=== PATIENT | female | born 1995 | race Caucasian/White ===

== ENCOUNTER 2018-03-24 18:30 | Emergency (ER) | payer SELFPAY ==
[~2018-03-24] VITALS: Ht 172.7 cm; Wt 75.0 kg
[~2018-03-24 18:30] MED LIST: NORE1TAB57 PO
[2018-03-24 19:04] VITALS: BP 136/63; PULSE 62; RESP 18; TEMP 97.5; O2SAT 98
[2018-03-24 20:58] LABS: BILIRUBIN, URINE NEG (NEG); BLOOD, URINE NEG (NEG); GLUCOSE,URINE NEG (NEG); KETONE, URINE NEG (NEG); MUCUS URINE FEW /lpf (OCC); NITRITE,URINE NEG (NEG); PH, URINE 5.5 (5.0-8.5); SQUAMOUS EPITHELIAL CELL URINE 1 /hpf (0-5); URINE COLOR YELLOW (YELLW/STRAW); URINE LEUKOCYTE ESTERASE LARGE (NEG)
[2018-03-24] MEDS ORDERED: AZITHROMYCIN PWD FOR SUSP 1 GM PACKET PO ONE (21:45)
[2018-03-24] MEDS ORDERED: cefTRIAXone 250 MG VIAL IM ONE (21:45)
[2018-03-24] MEDS ORDERED: LIDOCAINE HCL 1% 50 ML VIAL IM ONE (21:45)
--- NOTE | 2018-03-24 21:48 | PD ---
HPI Chief Complaint: Complaint Time Seen by Provider: 21:37 Travel History International Travel<30 days: No Contact w/Intl Traveler<30days: No Traveled to known affect area: No History of Present Illness HPI 22-year-old white female presents emergency department requesting evaluation of lower pelvic discomfort and a whitish thick white vaginal discharge. Patient states that she has had intermittent lower pelvic pain 2 months. She states in the last week she has noted a vaginal discharge. She denies any fever chills. No nausea vomiting. No back pain. She states that her last mental period is over 1 month ago. She is sexually active. She reports a single partner. She does also report some increased urinary frequency and some slight dysuria. No hematuria. PFSH Past Medical History Narrative Medical Ovarian cysts, anxiety, depression, OCD Immunizations Current: Yes Tetanus Vaccination: Unknown Influenza Vaccination: No ?: Unknown Past Surgical History Surgical History: No Previous Surgery Social History Alcohol Use: No Tobacco Use: No Substance Use: No Allergies-Medications (Allergen,Severity, Reaction): Coded Allergies: No Known Allergies (Unverified Adverse Reaction, Unknown, 03/24/18) Reported Meds & Prescriptions Reported Meds & Active Scripts Active Diflucan (Fluconazole) 150 Mg Tab 150 Mg PO ONCE Loestrin 1.5/30 (Norethindrone-Ethinyl Estradiol) 1.5-30 Mg-Mcg Tab 1 Tab PO DAILY Review of Systems General / Constitutional: No: Fever Eyes: No: Visual changes HENT: No: Headaches Cardiovascular: No: Chest Pain or Discomfort Respiratory: No: Shortness of Breath Gastrointestinal: No: Nausea, Vomiting, Diarrhea, Abdominal Pain Genitourinary: Positive: Frequency (0), Dysuria, Pelvic Pain, Discharge, No: Hematuria, Dysmenorrhea, Menorrhagia, Vaginal Bleeding Musculoskeletal: No: Arthralgias, Limited ROM, Pain Skin: No Rash Neurologic: No: Weakness Psychiatric: No: Depression Endocrine: No: Polydipsia Hematologic/Lymphatic: No: Easy Bruising Physical Exam Narrative GENERAL: Well-developed, well-nourished in no acute distress. Nontoxic appearing. HEAD: Normocephalic, atraumatic. EYES: Pupils equal round and reactive. Extraocular motions intact. No scleral icterus. No injection or drainage. ENT: TMs clear without erythema. The external auditory canals clear. Nose: clear . Posterior pharynx is pink and moist. No tonsillar edema or exudate. Uvula midline. Airway patent. NECK: Trachea midline.Supple, nontender, moves head freely. No central bony tenderness or spasm. CARDIOVASCULAR: Regular rate and rhythm without murmurs, gallops, or rubs. RESPIRATORY: Clear to auscultation. Breath sounds equal bilaterally. No wheezes , rales, or rhonchi. GASTROINTESTINAL: Abdomen soft, non-tender, nondistended. No hepato-splenomegaly , or palpable masses. No guarding. EXTREMITIES: No clubbing, cyanosis, or edema. No joint tenderness, effusion, or edema noted. BACK: Nontender without deformity or crepitance. No flank tenderness. Pelvic: Ludy AMIN RN present during the exam. Patient has a moderate amount of white thick vaginal discharge. No lesions. Speculum exam performed. Cultures obtained. Cervical friability. No blood in the vault. Bimanual exam deferred. Data Data Last Documented VS Vital Signs Date Time Temp Pulse Resp B/P (MAP) Pulse Ox O2 Delivery O2 Flow Rate FiO2 03/24/18 19:04 97.5 62 18 136/63 (87) 98 Orders Orders Urinalysis - C+S If Indicated (03/24/18 20:35) Ed Urine Pregnancytest Poc (03/24/18 20:35) Gc And Chlamydia Pcr (03/24/18 21:41) Wet Prep Profile (03/24/18 21:41) Azithromycin Powd Pack (Zithromax Powd P (03/24/18 21:45) Ceftriaxone Inj (Rocephin Inj) (03/24/18 21:45) Lidocaine 1% Inj (50 Ml) (Xylocaine 1% I (03/24/18 21:45) Labs Laboratory Tests Test 03/24/18 18:23 03/25/18 00:10 Urine Color YELLOW Urine Turbidity CLEAR Urine pH 5.5 Urine Specific [place] 1.028 Urine Protein NEG mg/dL Urine Glucose (UA) NEG mg/dL Urine Ketones NEG mg/dL Urine Occult Blood NEG Urine Nitrite NEG Urine Bilirubin NEG Urine Urobilinogen LESS THAN 2.0 MG/DL Urine Leukocyte Esterase LARGE Urine RBC LESS THAN 1 /hpf Urine WBC 2 /hpf Urine Squamous Epithelial Cells 1 /hpf Urine Mucus FEW /lpf Microscopic Urinalysis Comment CULT NOT INDICATED Clue Cells (Wet Prep) NONE SEEN Vaginal Trichomonas (Wet Prep) NONE SEEN Vaginal Yeast (Wet Prep) NONE SEEN MDM Medical Decision Making Medical Screen Exam Complete: Yes Emergency Medical Condition: Yes Medical Record Reviewed: Yes Interpretation(s) Vital Signs Date Time Temp Pulse Resp B/P (MAP) Pulse Ox O2 Delivery O2 Flow Rate FiO2 03/24/18 19:04 97.5 62 18 136/63 (87) 98 Laboratory Tests Test 03/24/18 18:23 Urine Color YELLOW Urine Turbidity CLEAR Urine pH 5.5 Urine Specific [place] 1.028 Urine Protein NEG mg/dL Urine Glucose (UA) NEG mg/dL Urine Ketones NEG mg/dL Urine Occult Blood NEG Urine Nitrite NEG Urine Bilirubin NEG Urine Urobilinogen LESS THAN 2.0 MG/DL Urine Leukocyte Esterase LARGE Urine RBC LESS THAN 1 /hpf Urine WBC 2 /hpf Urine Squamous Epithelial Cells 1 /hpf Urine Mucus FEW /lpf Microscopic Urinalysis Comment CULT NOT INDICATED Wet prep: Negative for trichomoniasis, negative for yeast, negative for clue cells Differential Diagnosis Differential diagnosis: PID, vaginitis, yeast vaginitis, , UTI, ovarian cysts, endometriosis Narrative Course Patient's urinalysis is negative. HCG is negative. Laboratory Tests Test 03/24/18 18:23 Urine Color YELLOW Urine Turbidity CLEAR Urine pH 5.5 Urine Specific [place] 1.028 Urine Protein NEG mg/dL Urine Glucose (UA) NEG mg/dL Urine Ketones NEG mg/dL Urine Occult Blood NEG Urine Nitrite NEG Urine Bilirubin NEG Urine Urobilinogen LESS THAN 2.0 MG/DL Urine Leukocyte Esterase LARGE Urine RBC LESS THAN 1 /hpf Urine WBC 2 /hpf Urine Squamous Epithelial Cells 1 /hpf Urine Mucus FEW /lpf Microscopic Urinalysis Comment CULT NOT INDICATED We will perform a pelvic exam. Patient was given Rocephin 250 mg IM and Zithromax 1 g p.o. Vital Signs Date Time Temp Pulse Resp B/P (MAP) Pulse Ox O2 Delivery O2 Flow Rate FiO2 03/24/18 19:04 97.5 62 18 136/63 (87) 98 Diagnosis Primary Impression: Nonspecific vaginitis Qualified Codes: N76.0 - Acute vaginitis Patient Instructions: General Instructions Additional Instructions: Rest. Increase fluids. Diflucan. 2 Aleve [id number] twice daily for pain. Follow-up with your primary care doctor or a RETAIL REPRESENTATIVE in 1 week. Return to the ER if any problems. Med/Other Pt SpecificInfo: Prescription(s) given Scripts Fluconazole (Diflucan) 150 Mg Tab 150 MG PO ONCE for Infection, #1 TAB 0 Refills Prov: Rommel Her MD 03/25/18 Disposition: 01 DISCHARGE HOME Condition: Stable [facility] March 24, 2018 21:48
[2018-03-25] MEDS ORDERED: DIFL150T PO (00:28)
== END 2018-03-25 00:39 | disposition home or self-care (01) ==
LOC: NEPD 18:30
DX: N76.0 Acute vaginitis (principal)
CPT/HCPCS: 81001; 84703; 87210; 87491; 87591; 96372; 99283; J0696

== ENCOUNTER 2018-04-01 02:23 | Emergency (ER) | payer SELFPAY ==
[~2018-04-01] VITALS: Ht 172.7 cm; Wt 78.0 kg
[~2018-04-01 02:23] MED LIST changes: +DIFL150T PO
[2018-04-01 02:31] VITALS: BP 106/80; PULSE 89; RESP 18; TEMP 98.3; O2SAT 98
--- NOTE | 2018-04-01 02:41 | PD ---
HPI Chief Complaint: Psychiatric Symptoms Time Seen by Provider: 02:34 Travel History International Travel<30 days: No Contact w/Intl Traveler<30days: No History of Present Illness HPI Patient is a 22-year-old female presenting to the emergency department under Machado act for psychiatric evaluation. Patient states that she drank the better part of a large bottle of wine tonight, she states the alcohol causes her depression to feel worse and she knew this before she drank it. She states because she felt more depressed she started cutting herself again. She reports a history of cutting however she has had no incidents in the recent past. Patient was found on her bathroom floor passed out by her best friend who then called 911. She is followed by a therapist and is currently on antidepressants. She reports a remote history of a suicide attempt. She denies feeling suicidal at this time but states when she cut herself earlier she was feeling that way when she was drunk. Symptom onset was gradual, symptoms are moderate in nature, symptoms are exacerbated by alcohol. Patient has no physical complaints at this time. Her tetanus vaccine is up-to-date. She denies any homicidal ideations or hallucinations. [facility] Past Medical History Anxiety: Yes Depression: Yes Psychiatric: Yes (Cutting) Immunizations Current: Yes Social History Alcohol Use: No Tobacco Use: No Substance Use: No Allergies-Medications (Allergen,Severity, Reaction): Coded Allergies: No Known Allergies (Unverified Adverse Reaction, Unknown, 03/24/18) Reported Meds & Prescriptions Reported Meds & Active Scripts Active Diflucan (Fluconazole) 150 Mg Tab 150 Mg PO ONCE Loestrin 1.5/30 (Norethindrone-Ethinyl Estradiol) 1.5-30 Mg-Mcg Tab 1 Tab PO DAILY Review of Systems Except as stated in HPI: all other systems reviewed are Neg Skin: Positive Other (Superficial lacerations) Psychiatric: Positive: Depression, Suicidal Ideations Physical Exam Narrative GENERAL: Well-developed, well-nourished, alert female. Presenting in no acute distress. SKIN: Warm and dry. Multiple superficial abrasions to bilateral upper outer thighs, under both breasts, left forearm. No active bleeding noted. HEAD: Atraumatic. Normocephalic. EYES: Pupils equal and round. No scleral icterus. No injection or drainage. ENT: No nasal bleeding or discharge. Mucous membranes pink and moist. NECK: Trachea midline. No JVD. CARDIOVASCULAR: Regular rate and rhythm. RESPIRATORY: No accessory muscle use. Clear to auscultation. Breath sounds equal bilaterally. GASTROINTESTINAL: Abdomen soft, non-tender, nondistended. Hepatic and splenic margins not palpable. MUSCULOSKELETAL: Extremities without clubbing, cyanosis, or edema. No obvious deformities. NEUROLOGICAL: Awake and alert. No obvious cranial nerve deficits. Motor grossly within normal limits. Five out of 5 muscle strength in the arms and legs. Normal speech. PSYCHIATRIC: Appropriate mood and affect; insight and judgment normal. Data Data Last Documented VS Vital Signs Date Time Temp Pulse Resp B/P (MAP) Pulse Ox O2 Delivery O2 Flow Rate FiO2 04/01/18 02:31 98.3 89 18 106/80 (89) 98 Orders Orders Complete Blood Count With Diff (04/01/18 02:35) Comprehensive Metabolic Panel (04/01/18 02:35) Thyroid Stimulating Hormone (04/01/18 02:35) Urinalysis - C+S If Indicated (04/01/18 02:35) Psych Screen (04/01/18 02:35) Drug Screen, Random Urine (04/01/18 02:35) Alcohol (Ethanol) (04/01/18 02:35) Salicylates (Aspirin) (04/01/18 02:35) Tylenol (Acetaminophen) (04/01/18 02:35) Wound Care (04/01/18 02:41) Labs Laboratory Tests Test 04/01/18 02:39 White Blood Count 7.3 TH/MM3 Red Blood Count 4.67 MIL/MM3 Hemoglobin 13.6 GM/DL Hematocrit 39.9 % Mean Corpuscular Volume 85.4 FL Mean Corpuscular Hemoglobin 29.1 PG Mean Corpuscular Hemoglobin Concent 34.0 % Red Cell Distribution Width 13.3 % Platelet Count 194 TH/MM3 Mean Platelet Volume 8.6 FL Neutrophils (%) (Auto) 63.3 % Lymphocytes (%) (Auto) 29.7 % Monocytes (%) (Auto) 6.6 % Eosinophils (%) (Auto) 0.0 % Basophils (%) (Auto) 0.4 % Neutrophils # (Auto) 4.6 TH/MM3 Lymphocytes # (Auto) 2.2 TH/MM3 Monocytes # (Auto) 0.5 TH/MM3 Eosinophils # (Auto) 0.0 TH/MM3 Basophils # (Auto) 0.0 TH/MM3 CBC Comment DIFF FINAL Differential Comment Urine Color LIGHT-YELLOW Urine Turbidity CLEAR Urine pH 5.0 Urine Specific [place] 1.010 Urine Protein NEG mg/dL Urine Glucose (UA) NEG mg/dL Urine Ketones NEG mg/dL Urine Occult Blood SMALL Urine Nitrite NEG Urine Bilirubin NEG Urine Urobilinogen LESS THAN 2.0 MG/DL Urine Leukocyte Esterase NEG Urine WBC 2 /hpf Urine Squamous Epithelial Cells 1 /hpf Urine Mucus FEW /lpf Microscopic Urinalysis Comment CULT NOT INDICATED Blood Urea Nitrogen 11 MG/DL Creatinine 0.82 MG/DL Random Glucose 101 MG/DL Total Protein 7.5 GM/DL Albumin 3.9 GM/DL Calcium Level 8.5 MG/DL Alkaline Phosphatase 63 U/L Aspartate Amino Transf (AST/SGOT) 18 U/L Alanine Aminotransferase (ALT/SGPT) 22 U/L Total Bilirubin 0.1 MG/DL Sodium Level 143 MEQ/L Potassium Level 3.7 MEQ/L Chloride Level 108 MEQ/L Carbon Dioxide Level 21.6 MEQ/L Anion Gap 13 MEQ/L Estimat Glomerular Filtration Rate 88 ML/MIN Thyroid Stimulating Hormone 3rd Gen 1.310 uIU/ML Salicylates Level LESS THAN 1.7 MG/DL Urine Opiates Screen NEG Acetaminophen Level LESS THAN 2.0 MCG/ML Urine Barbiturates Screen NEG Urine Amphetamines Screen NEG Urine Benzodiazepines Screen NEG Urine Cocaine Screen NEG Urine Cannabinoids Screen NEG Ethyl Alcohol Level 53 MG/DL MDM Medical Decision Making Medical Screen Exam Complete: Yes Emergency Medical Condition: Yes Interpretation(s) Vital Signs Date Time Temp Pulse Resp B/P (MAP) Pulse Ox O2 Delivery O2 Flow Rate FiO2 04/01/18 02:31 98.3 89 18 106/80 (89) 98 Laboratory Tests Test 04/01/18 02:39 White Blood Count 7.3 TH/MM3 Red Blood Count 4.67 MIL/MM3 Hemoglobin 13.6 GM/DL Hematocrit 39.9 % Mean Corpuscular Volume 85.4 FL Mean Corpuscular Hemoglobin 29.1 PG Mean Corpuscular Hemoglobin Concent 34.0 % Red Cell Distribution Width 13.3 % Platelet Count 194 TH/MM3 Mean Platelet Volume 8.6 FL Neutrophils (%) (Auto) 63.3 % Lymphocytes (%) (Auto) 29.7 % Monocytes (%) (Auto) 6.6 % Eosinophils (%) (Auto) 0.0 % Basophils (%) (Auto) 0.4 % Neutrophils # (Auto) 4.6 TH/MM3 Lymphocytes # (Auto) 2.2 TH/MM3 Monocytes # (Auto) 0.5 TH/MM3 Eosinophils # (Auto) 0.0 TH/MM3 Basophils # (Auto) 0.0 TH/MM3 CBC Comment DIFF FINAL Differential Comment Urine Color LIGHT-YELLOW Urine Turbidity CLEAR Urine pH 5.0 Urine Specific [place] 1.010 Urine Protein NEG mg/dL Urine Glucose (UA) NEG mg/dL Urine Ketones NEG mg/dL Urine Occult Blood SMALL Urine Nitrite NEG Urine Bilirubin NEG Urine Urobilinogen LESS THAN 2.0 MG/DL Urine Leukocyte Esterase NEG Urine WBC 2 /hpf Urine Squamous Epithelial Cells 1 /hpf Urine Mucus FEW /lpf Microscopic Urinalysis Comment CULT NOT INDICATED Blood Urea Nitrogen 11 MG/DL Creatinine 0.82 MG/DL Random Glucose 101 MG/DL Total Protein 7.5 GM/DL Albumin 3.9 GM/DL Calcium Level 8.5 MG/DL Alkaline Phosphatase 63 U/L Aspartate Amino Transf (AST/SGOT) 18 U/L Alanine Aminotransferase (ALT/SGPT) 22 U/L Total Bilirubin 0.1 MG/DL Sodium Level 143 MEQ/L Potassium Level 3.7 MEQ/L Chloride Level 108 MEQ/L Carbon Dioxide Level 21.6 MEQ/L Anion Gap 13 MEQ/L Estimat Glomerular Filtration Rate 88 ML/MIN Thyroid Stimulating Hormone 3rd Gen 1.310 uIU/ML Salicylates Level LESS THAN 1.7 MG/DL Urine Opiates Screen NEG Acetaminophen Level LESS THAN 2.0 MCG/ML Urine Barbiturates Screen NEG Urine Amphetamines Screen NEG Urine Benzodiazepines Screen NEG Urine Cocaine Screen NEG Urine Cannabinoids Screen NEG Ethyl Alcohol Level 53 MG/DL Vital Signs Date Time Temp Pulse Resp B/P (MAP) Pulse Ox O2 Delivery O2 Flow Rate FiO2 04/01/18 02:31 98.3 89 18 106/80 (89) 98 Differential Diagnosis Self-mutilation versus scoping versus suicidal ideations versus depression versus substance-induced mood disorder versus other Narrative Course Patient is a well-appearing 22-year-old female with a known history of depression exacerbated by alcohol intake tonight. Wound care ordered, Mental health screening discussed with the patient. Psychiatric screen ordered. Patient is otherwise well-appearing and cooperative. Alcohol level is 53, labs reviewed and there are no acute findings identified. Wounds were cleaned by RN, please see her documentation. Patient is medically clear for psychiatric evaluation. Diagnosis Primary Impression: Medical clearance for psychiatric admission Additional Impressions: Deliberate self-cutting Alcohol intoxication Qualified Codes: F10.920 - Alcohol use, unspecified with intoxication, uncomplicated Condition: Stable Angela Alvarez April 01, 2018 02:41
[2018-04-01 02:59] LABS: AUTOMATED NEUTROPHIL # 4.6 TH/MM3 (1.8-7.7); BASOPHIL % 0.4 % (0.0-2.0); HEMATOCRIT 39.9 % (35.0-46.0); HEMOGLOBIN 13.6 GM/DL (11.6-15.3); LYMPH % 29.7 % (9.0-44.0); LYMPHOCYTE # 2.2 TH/MM3 (1.0-4.8); MEAN CELL VOLUME 85.4 FL (80.0-100.0); MEAN CORPUSCULAR HEMOGLOBIN 29.1 PG (27.0-34.0); MEAN PLATELET VOLUME 8.6 FL (7.0-11.0); MONO % 6.6 % (0.0-8.0); MONOCYTE # 0.5 TH/MM3 (0-0.9); NEUT % 63.3 % (16.0-70.0); PLATELET COUNT 194 TH/MM3 (150-450); RED BLOOD COUNT 4.67 MIL/MM3 (4.00-5.30); RED CELL DISTRIBUTION WIDTH 13.3 % (11.6-17.2); WHITE BLOOD COUNT 7.3 TH/MM3 (4.0-11.0)
[2018-04-01 03:09] LABS: BILIRUBIN, URINE NEG (NEG); BLOOD, URINE SMALL (NEG); GLUCOSE,URINE NEG (NEG); KETONE, URINE NEG (NEG); MUCUS URINE FEW /lpf (OCC); NITRITE,URINE NEG (NEG); SQUAMOUS EPITHELIAL CELL URINE 1 /hpf (0-5); URINE COLOR LIGHT-YELLOW (YELLW/STRAW); URINE LEUKOCYTE ESTERASE NEG (NEG)
[2018-04-01 03:22] LABS: ALBUMIN 3.9 GM/DL (3.4-5.0); ALT (GPT) 22 U/L (10-53); AST (GOT) 18 U/L (15-37); BICARBONATE 21.6 MEQ/L (21.0-32.0); BLOOD UREA NITROGEN 11 MG/DL (7-18); CALCIUM 8.5 MG/DL (8.5-10.1); CHLORIDE 108 MEQ/L (98-107); CREATININE 0.82 MG/DL (0.50-1.00); GLOMERULAR FILTRATION RATE 88 ML/MIN (>89); GLUCOSE,RANDOM 101 MG/DL (74-106); SODIUM (NA) 143 MEQ/L (136-145)
[2018-04-01 03:32] LABS: ALKALINE PHOSPHATASE 63 U/L (45-117); TOTAL BILIRUBIN ADULT 0.1 MG/DL (0.2-1.0); TOTAL PROTEIN 7.5 GM/DL (6.4-8.2)
[2018-04-01 03:49] LABS: ACETAMINOPHEN LESS THAN 2.0 MCG/ML (10.0-30.0)
[2018-04-01 07:10] VITALS: BP 107/59; PULSE 65; RESP 15; TEMP 97.8; O2SAT 99
--- NOTE | 2018-04-01 09:41 | PD ---
Physical Exam Time Seen by Provider: 09:[address] Nix has evaluated the patient, lifted Machado act and cleared the patient for discharge. Data Data Last Documented VS Vital Signs Date Time Temp Pulse Resp B/P (MAP) Pulse Ox O2 Delivery O2 Flow Rate FiO2 04/01/18 07:10 65 15 04/01/18 07:10 97.8 107/59 (75) 99 Room Air Orders Orders Complete Blood Count With Diff (04/01/18 02:35) Comprehensive Metabolic Panel (04/01/18 02:35) Thyroid Stimulating Hormone (04/01/18 02:35) Urinalysis - C+S If Indicated (04/01/18 02:35) Psych Screen (04/01/18 02:35) Drug Screen, Random Urine (04/01/18 02:35) Alcohol (Ethanol) (04/01/18 02:35) Salicylates (Aspirin) (04/01/18 02:35) Tylenol (Acetaminophen) (04/01/18 02:35) Wound Care (04/01/18 02:41) Diet Regular Basic (04/01/18 Breakfast) Labs Laboratory Tests Test 04/01/18 02:39 White Blood Count 7.3 TH/MM3 Red Blood Count 4.67 MIL/MM3 Hemoglobin 13.6 GM/DL Hematocrit 39.9 % Mean Corpuscular Volume 85.4 FL Mean Corpuscular Hemoglobin 29.1 PG Mean Corpuscular Hemoglobin Concent 34.0 % Red Cell Distribution Width 13.3 % Platelet Count 194 TH/MM3 Mean Platelet Volume 8.6 FL Neutrophils (%) (Auto) 63.3 % Lymphocytes (%) (Auto) 29.7 % Monocytes (%) (Auto) 6.6 % Eosinophils (%) (Auto) 0.0 % Basophils (%) (Auto) 0.4 % Neutrophils # (Auto) 4.6 TH/MM3 Lymphocytes # (Auto) 2.2 TH/MM3 Monocytes # (Auto) 0.5 TH/MM3 Eosinophils # (Auto) 0.0 TH/MM3 Basophils # (Auto) 0.0 TH/MM3 CBC Comment DIFF FINAL Differential Comment Urine Color LIGHT-YELLOW Urine Turbidity CLEAR Urine pH 5.0 Urine Specific [place] 1.010 Urine Protein NEG mg/dL Urine Glucose (UA) NEG mg/dL Urine Ketones NEG mg/dL Urine Occult Blood SMALL Urine Nitrite NEG Urine Bilirubin NEG Urine Urobilinogen LESS THAN 2.0 MG/DL Urine Leukocyte Esterase NEG Urine WBC 2 /hpf Urine Squamous Epithelial Cells 1 /hpf Urine Mucus FEW /lpf Microscopic Urinalysis Comment CULT NOT INDICATED Blood Urea Nitrogen 11 MG/DL Creatinine 0.82 MG/DL Random Glucose 101 MG/DL Total Protein 7.5 GM/DL Albumin 3.9 GM/DL Calcium Level 8.5 MG/DL Alkaline Phosphatase 63 U/L Aspartate Amino Transf (AST/SGOT) 18 U/L Alanine Aminotransferase (ALT/SGPT) 22 U/L Total Bilirubin 0.1 MG/DL Sodium Level 143 MEQ/L Potassium Level 3.7 MEQ/L Chloride Level 108 MEQ/L Carbon Dioxide Level 21.6 MEQ/L Anion Gap 13 MEQ/L Estimat Glomerular Filtration Rate 88 ML/MIN Thyroid Stimulating Hormone 3rd Gen 1.310 uIU/ML Salicylates Level LESS THAN 1.7 MG/DL Urine Opiates Screen NEG Acetaminophen Level LESS THAN 2.0 MCG/ML Urine Barbiturates Screen NEG Urine Amphetamines Screen NEG Urine Benzodiazepines Screen NEG Urine Cocaine Screen NEG Urine Cannabinoids Screen NEG Ethyl Alcohol Level 53 MG/DL MDM Supervised Visit with [facility]RIST[facility]AL: No Narrative Course Dr. Nix has evaluated the patient, lifted Carter james and cleared the patient for discharge. Patient contracts safety. Denies suicidal or homicidal ideations. Patient will be provided community resource packet to [facility] for follow-up. Has friends and family for support. Patient was medically cleared by alternate provider prior to psych screening. Patient has been evaluated by psychiatry and and is now cleared for discharge. Diagnosis Primary Impression: Alcohol intoxication Qualified Codes: F10.920 - Alcohol use, unspecified with intoxication, uncomplicated Additional Impression: Deliberate self-cutting Referrals: [facility] (Out patient) [facility] Primary Care Physician Psychiatrist Gennaro [facility] Patient Instructions: Abuse of Alcohol (ED), Acute Wound Care (DC), Alcohol Dependence (ED), Alcohol Intoxication (ED), General Instructions Additional Instruction: Contract safety to your self and others Follow-up with psychiatry Follow-up with primary care provider Follow-up with Isai Garcia Return to the emergency department immediately with worsening of symptoms Med/Other Pt SpecificInfo: No Change to Meds, No Meds Exist/No RX given Disposition: 01 DISCHARGE HOME Condition: Stable Aida Nguyen April 01, 2018 09:41
--- NOTE | 2018-04-01 14:08 | PD.PSY.CON ---
Provisional Diagnosis Admission Date [place] I. Alcohol-induced mood disorder, alcohol use disorder, history of depression [place] II. Unspecified personality disorder, cluster B trait [place] III. No significant medical history History of Present Illness Service Psychiatry Consult Requested By ER Reason for Consult Self cutting behavior Primary Care Physician No Primary Care Physician HPI The patient was seen this morning at 7:15 AM The patient is a 22-year-old woman, domiciled would best friend in [facility], employed, with psychiatric history of depression, alcohol use disorder , self cutting behavior without SI, no previous psychiatric histo, no previous psychiatric hospitalizations, no previous suicide attempts, who is presenting to the emergency department under [place] act for psychiatric evaluation. Patient states that she drank the better part of a large bottle of wine tonight , she states the alcohol causes her depression to feel worse and she knew this before she drank it. She states because she felt more depressed she started cutting herself again. She reports a history of cutting however she has had no incidents in the recent past. Patient was found on her bathroom floor passed out by her best friend who then called 911. She is followed by a therapist and [facility] She reports a remote history of a suicide attempt. She denies feeling suicidal at this time but states when she cut herself earlier she was feeling that way when she was drunk. Symptom onset was gradual, symptoms are moderate in nature, symptoms are exacerbated by alcohol. Patient has no physical complaints at this time. Her tetanus vaccine is up-to-date. She denies any homicidal ideations or hallucinations. Review of Systems Constitutional: DENIES: Diaphoretic episodes, Fatigue, Fever, Weight gain, Weight loss, Chills, Dizziness, Change in appetite, Night Sweats Endocrine: DENIES: Abnorml menstrual pattern, Heat/cold intolerance, Polydipsia , Polyuria, Polyphagia Eyes: DENIES: Blurred vision, Diplopia, Eye inflammation, Eye pain, Vision loss , Photosensitivity, Double Vision Ears, nose, mouth, throat: DENIES: Tinnitus, Hearing loss, Vertigo, Nasal discharge, Oral lesions, Throat pain, Hoarseness, Ear Pain, Running Nose, Epistaxis, Sinus Pain, Toothache, Odynophagia Respiratory: DENIES: Apneas, Cough, Snoring, Wheezing, Hemoptysis, Sputum production, Shortness of breath Cardiovascular: DENIES: Chest pain, Palpitations, Syncope, Dyspnea on Exertion , PND, Lower Extremity Edema, Orthopnea, Claudication Gastrointestinal: DENIES: Abdominal pain, Black stools, Bloody stools, Constipation, Diarrhea, Nausea, Vomiting, Difficulty Swallowing, Anorexia Genitourinary: DENIES: Abnormal vaginal bleeding, Dysmenorrhea, Dyspareunia, Sexual dysfunction, Urinary frequency, Urinary incontinence, Urgency, Hematuria , Dysuria, Nocturia, Vaginal discharge Musculoskeletal: DENIES: Joint pain, Muscle aches, Stiffness, Joint Swelling, Back pain, Neck pain Integumentary: DENIES: Abnormal pigmentation, Pruritus, Rash, Nail changes, Breast masses, Breast skin changes, Nipple discharge Hematologic/lymphatic: DENIES: Bruising, Lymphadenopathy Immunologic/allergic: DENIES: Eczema, Urticaria Neurologic: DENIES: Abnormal gait, Headache, Localized weakness, Paresthesias, Seizures, Speech Problems, Tremor, Poor Balance Psychiatric: DENIES: Anxiety, Confusion, Mood changes, Depression, Hallucinations, Agitation, Suicidal Ideation, Homicidal Ideation, Delusions Past Family Social History Coded Allergies: No Known Allergies (Unverified Adverse Reaction, Unknown, 03/24/18) Active Scripts Fluconazole (Diflucan) 150 Mg Tab, 150 MG PO ONCE for Infection, #1 TAB 0 Refills Prov:Rommel Her MD 03/25/18 Norethindrone-Ethinyl Estradiol (Loestrin 1.5/30) 1.5-30 Mg-Mcg Tab, 1 TAB PO DAILY for Control, #3 PACK 3 Refills Prov:Seble Lock MD 06/29/17 Family Psych History Mother has anxiety, her father has depression Social History Patient was born and raised in [place], she lives with a friend in [facility], she is single, employed, has some college credit Patient's Strengths (min. 2) Employed Physical Exam Vital Signs Vital Signs Date Time Temp Pulse Resp B/P (MAP) Pulse Ox O2 Delivery O2 Flow Rate FiO2 04/01/18 10:17 04/01/18 07:10 65 15 04/01/18 07:10 97.8 99 Room Air Lab Results Test 04/01/18 02:39 White Blood Count 7.3 TH/MM3 Red Blood Count 4.67 MIL/MM3 Hemoglobin 13.6 GM/DL Hematocrit 39.9 % Mean Corpuscular Volume 85.4 FL Mean Corpuscular Hemoglobin 29.1 PG Mean Corpuscular Hemoglobin Concent 34.0 % Red Cell Distribution Width 13.3 % Platelet Count 194 TH/MM3 Mean Platelet Volume 8.6 FL Neutrophils (%) (Auto) 63.3 % Lymphocytes (%) (Auto) 29.7 % Monocytes (%) (Auto) 6.6 % Eosinophils (%) (Auto) 0.0 % Basophils (%) (Auto) 0.4 % Neutrophils # (Auto) 4.6 TH/MM3 Lymphocytes # (Auto) 2.2 TH/MM3 Monocytes # (Auto) 0.5 TH/MM3 Eosinophils # (Auto) 0.0 TH/MM3 Basophils # (Auto) 0.0 TH/MM3 CBC Comment DIFF FINAL Differential Comment Urine Color LIGHT-YELLOW Urine Turbidity CLEAR Urine pH 5.0 Urine Specific [place] 1.010 Urine Protein NEG mg/dL Urine Glucose (UA) NEG mg/dL Urine Ketones NEG mg/dL Urine Occult Blood SMALL Urine Nitrite NEG Urine Bilirubin NEG Urine Urobilinogen LESS THAN 2.0 MG/DL Urine Leukocyte Esterase NEG Urine WBC 2 /hpf Urine Squamous Epithelial Cells 1 /hpf Urine Mucus FEW /lpf Microscopic Urinalysis Comment CULT NOT INDICATED Blood Urea Nitrogen 11 MG/DL Creatinine 0.82 MG/DL Random Glucose 101 MG/DL Total Protein 7.5 GM/DL Albumin 3.9 GM/DL Calcium Level 8.5 MG/DL Alkaline Phosphatase 63 U/L Aspartate Amino Transf (AST/SGOT) 18 U/L Alanine Aminotransferase (ALT/SGPT) 22 U/L Total Bilirubin 0.1 MG/DL Sodium Level 143 MEQ/L Potassium Level 3.7 MEQ/L Chloride Level 108 MEQ/L Carbon Dioxide Level 21.6 MEQ/L Anion Gap 13 MEQ/L Estimat Glomerular Filtration Rate 88 ML/MIN Thyroid Stimulating Hormone 3rd Gen 1.310 uIU/ML Salicylates Level LESS THAN 1.7 MG/DL Urine Opiates Screen NEG Acetaminophen Level LESS THAN 2.0 MCG/ML Urine Barbiturates Screen NEG Urine Amphetamines Screen NEG Urine Benzodiazepines Screen NEG Urine Cocaine Screen NEG Urine Cannabinoids Screen NEG Ethyl Alcohol Level 53 MG/DL Mental Status Examination Appearance: Appropriate Consciousness: Alert Orientation: x4 Motor Activity: Normal gait Speech: Unremarkable Language: Adequate Fund of Knowledge: Adequate Attention and Concentration: Adequate Memory: Unremarkable Mood: Appropriate Affect: Appropriate Thought Process & Associations: Intact Thought Content: Appropriate Hallucination Type: None Delusion Type: None Suicidal Ideation: No Suicidal Plan: No Suicidal Intention: No Homicidal Ideation: No Homicidal Plan: No Homicidal Intention: No Insight: Adequate Judgment: Adequate Assessment & Plan Problem List: (1) Alcohol abuse with alcohol-induced mood disorder ICD Codes: F10.14 - Alcohol abuse with alcohol-induced mood disorder Assessment & Plan: At the moment of the psychiatric evaluation the patient is calm, cooperative, pleasant, logical coherent and relevant. She denies symptomatology of depression denies anxiety, denies brandan and psychosis. She denies suicidal and homicidal ideation. She denies visual and auditory hallucinations. No symptoms of intoxication or withdrawal are present. Apparently recent self cutting behavior is secondary to frustration and alcohol intoxication and is not a suicidal attempt. Patient has history of self cutting without SI in the past as a coping mechanism. Patient does not meet criteria for involuntary psychiatric admission at this moment. Continue psychiatric care as an outpatient in [facility]. Assessment & Plan Estimated LOS: Aiden Guaman MD April 01, 2018 14:08
== END 2018-04-01 10:16 | disposition home or self-care (01) ==
LOC: NEPD 02:23
DX: F10.920 Alcohol use, unspecified with intoxication, uncomplicated (principal); Y90.2 Blood alcohol level of 40-59 mg/100 ml; Z91.5 Personal history of self-harm
CPT/HCPCS: 80053; 80307; 81001; 84443; 85025; 99283